=== PATIENT | female | born 1975 ===

== ENCOUNTER 2018-08-29 21:32 | Emergency (ER) | payer OTHER ==
[2018-08-29 21:53] VITALS: BP 118/80; PULSE 67; TEMP 98.9; O2SAT 99
--- NOTE | 2018-08-29 22:44 | C.PDOC ---
History Of Present Illness 43 year old female presents to the ER with right upper back pain that worsens with breathing for the past 3 days and cough for the past week. Patient was seen by PMD, diagnosed with bronchitis and treated, she reports the cough has improved but now has increased pain with breathing. Denies fever, trauma, recent prolonged travel, or recent prolonged state of immobility. Time Seen by Provider: 08/29/18 21:57 Chief Complaint (Nursing): Back Pain History Per: Patient History/Exam Limitations: no limitations Onset/Duration Of Symptoms: Days Current Symptoms Are (Timing): Still Present Quality Of Discomfort: Unable To Describe Associated Symptoms: Other (Cough) Exacerbating Factor(s): Other (Breathing) Recent travel outside of the [place]: No Past Medical History Reviewed: Historical Data, Nursing Documentation, Vital Signs Vital Signs: Last Vital Signs Temp 98.9 F 08/29/18 21:50 Pulse 67 08/29/18 21:50 Resp 16 08/29/18 21:50 BP 118/80 08/29/18 21:50 Pulse Ox 99 08/29/18 21:50 - Medical History PMH: Migraine Family History: States: Unknown Family Hx - Social History Hx Alcohol Use: No Hx Substance Use: No - Immunization History Hx Influenza Vaccination: No Review Of Systems Constitutional: Negative for: Fever, Chills Cardiovascular: Negative for: Chest Pain, Palpitations Respiratory: Positive for: Cough. Negative for: Shortness of Breath, Wheezing Gastrointestinal: Negative for: Nausea, Vomiting Musculoskeletal: Positive for: Back Pain Skin: Negative for: Rash Physical Exam - Physical Exam Appears: Non-toxic Skin: Normal Color, Warm, Dry, No Rash Head: Atraumatic, Normacephalic Eye(s): bilateral: Normal Inspection Oral Mucosa: Moist Throat: Normal, No Erythema, No Exudate Neck: Normal, Supple Chest: Symmetrical, No Tenderness Cardiovascular: Rhythm Regular Respiratory: Normal Breath Sounds, No Rales, No Rhonchi, No Wheezing Back: No Vertebral Tenderness, No Paraspinal Tenderness Neurological/Psych: Oriented x3, Normal Speech ED Course And Treatment O2 Sat by Pulse Oximetry: 99 (Room air) Pulse Ox Interpretation: Normal - Radiology CXR: Interpreted by Me, Viewed By Me CXR Interpretation: Yes: No Acute Disease. No: Infiltrates Progress Note: CXR ordered, result was negative. Patient refused medication at this time. Patient is resting comfortably in the ER in no acute distress with clear breath sounds, vitals are stable, will discharge home with instructions to take NSAIDS as needed for pain and follow up with PMD. Disposition Counseled Patient/Family Regarding: Diagnosis, Need For Followup, Rx Given - Disposition Referrals: [facility] [Outside] Disposition: HOME/ ROUTINE Disposition Time: 22:42 Condition: STABLE Additional Instructions: Take motrin or tylenol for pain Follwo up with PMD Return to ER if symptoms worsen Instructions: Upper Back Pain (DC) Forms: Fwd: Power (Prydeinig) - Clinical Impression Clinical Impression: Upper back pain on right side - PA / [employer] / Resident Statement MD/DO has reviewed & agrees with the documentation as recorded. - Scribe Statement The provider has reviewed the documentation as recorded by the Scribe Rei Lofton All medical record entries made by the Jonathanibhal were at my direction and personally dictated by me. I have reviewed the chart and agree that the record accurately reflects my personal performance of the history, physical exam, medical decision making, and the department course for this patient. I have also personally directed, reviewed, and agree with the discharge instructions and disposition.
[2018-08-29 22:51] VITALS: RESP 20
--- NOTE | 2018-08-30 07:21 | RAD ---
HISTORY: cough, upperback pain on inspiration COMPARISON: None available TECHNIQUE: Chest PA and lateral FINDINGS: LUNGS: No focal consolidation. Please note that chest x-ray has limited sensitivity for the detection of pulmonary masses. PLEURA: No significant pleural effusion identified. No definite pneumothorax . CARDIOVASCULAR: Heart size appears within normal limits. No atherosclerotic calcification present. OSSEOUS STRUCTURES: No acute osseous abnormality identified. VISUALIZED UPPER ABDOMEN: Unremarkable. OTHER FINDINGS: None. IMPRESSION: No focal consolidation.
== END 2018-08-29 22:50 | disposition home or self-care (01) ==
LOC: C.ER 21:32
DX: M54.6 Pain in thoracic spine (principal)